=== PATIENT | male | born 1950 | race Asian ===

== ENCOUNTER 2022-12-24 08:19 | Inpatient (IN) | payer MEDICAID, MEDICARE ==
[~2022-12-24] VITALS: Ht 157.5 cm; Wt 54.4 kg
[2022-12-24 08:21] VITALS: BP 156/78
--- NOTE | 2022-12-24 08:21 | NUR ---
CHICHO FROM HOME FOR SOB/ASTHMA EXACERBATION. PMH: ASTHMA, HIGH CHOLESTEROL
--- NOTE | 2022-12-24 08:21 | NUR ---
CHICHO ALS TO ER BED 9
--- NOTE | 2022-12-24 08:47 | NUR ---
DR. ZUNIGA EVALUATING PATIENT AT BEDSIDE.
[2022-12-24] MEDS ORDERED: MAG SULF 2000 MG/WATER PREMIX 50 ML IV ONE (08:50)
[2022-12-24] MEDS ORDERED: methylPREDNISolone SS 125 MG/2 ML VIAL IVP ONE (08:50)
[2022-12-24] MEDS ORDERED: IPRATROPIUM 0.02% 0.5 MG/2.5 ML NEBU INH ONE (08:50)
[2022-12-24] MEDS ORDERED: ALBUTEROL 0.083% 2.5 MG/3 ML NEBU INH ONE (08:50)
[2022-12-24 09:11] LABS: BASOPHILS # (AUTO) 0.2 K/uL (0.00-0.22); BASOPHILS % (AUTO) 2.4 % (0.0-2.0); EOSINOPHILS # (AUTO) 1.1 K/uL (0-0.4); EOSINOPHILS % (AUTO) 15.1 % (0.0-4.0); HEMATOCRIT 48.4 % (36-52); HEMOGLOBIN 16.3 g/dL (12.0-18.0); LYMPHOCYTES # (AUTO) 2.5 K/uL (2.0-11.5); LYMPHOCYTES % (AUTO) 34.1 % (20.5-51.1); MEAN CORPUSCULAR HEMOGLOBIN 31 pg (27-31); MEAN CORPUSCULAR HGB CONC 34 g/dL (33-37); MEAN CORPUSCULAR VOLUME 93.3 fL (80-94); MONOCYTES # (AUTO) 0.4 K/uL (0.8-1.0); MONOCYTES % (AUTO) 5.5 % (1.7-9.3); NEUTROPHILS # (AUTO) 3.1 K/uL (1.8-7.7); NEUTROPHILS % (AUTO) 42.9 % (42.2-75.2); PLATELET COUNT (AUTO) 340 K/uL (140-450); RED BLOOD CELL COUNT(AUTO) 5.19 MIL/uL (4.20-6.10); RED CELL DISTRIBUTION WIDTH 12.9 % (11.6-13.7); WHITE BLOOD COUNT (AUTO) 7.2 K/uL (4.8-10.8)
[2022-12-24 09:28] LABS: ALBUMIN 3.9 g/dL (3.4-5.0); ANION GAP 12.1 (8-16); ASPARTATE AMINOTRANSFERASE 38 U/L (15-37); CARBON DIOXIDE 30.2 mmol/L (21-32); CHLORIDE 102 mmol/L (98-107); CREATININE 1.1 mg/dL (0.6-1.3); GLUCOSE 108 mg/dL (74-106); POTASSIUM 4.3 mmol/L (3.5-5.1); SODIUM SERUM 140 mmol/L (136-145); TOTAL BILIRUBIN 0.4 mg/dL (0.0-1.0); UREA NITROGEN, BLOOD 15 mg/dL (7-18)
[2022-12-24] MEDS ORDERED: ALBU1SPR IH (10:02)
[2022-12-24] MEDS ORDERED: ATOR40TA PO (10:02)
[2022-12-24] MEDS ORDERED: ONDANSETRON 4 MG/2 ML VIAL IVP PRN (11:20)
[2022-12-24] MEDS ORDERED: ACETAMINOPHEN 325 MG TAB PO PRN (11:20)
[2022-12-24] MEDS: NACL 0.9% 1,000 ML IV SCH (11:20)
[2022-12-24] MEDS ORDERED: POTASSIUM CHLORIDE 10 MEQ TABER PO PRN (11:20)
[2022-12-24] MEDS ORDERED: ALBUTEROL SULFATE/IPRATROPIU 3 ML SOL IH PRN (11:20)
[2022-12-24] MEDS ORDERED: HYDROcodone/APAP 7.5/325 MG 1 TAB PO PRN (11:20)
[2022-12-24] MEDS ORDERED: MAG SULF 2000 MG/WATER PREMIX 50 ML IV PRN (11:20)
[2022-12-24 12:25] LABS: BASOPHILS # (AUTO) 0.1 K/uL (0.00-0.22); BASOPHILS % (AUTO) 0.9 % (0.0-2.0); EOSINOPHILS # (AUTO) 0.1 K/uL (0-0.4); EOSINOPHILS % (AUTO) 1.5 % (0.0-4.0); HEMATOCRIT 47.8 % (36-52); HEMOGLOBIN 15.6 g/dL (12.0-18.0); LYMPHOCYTES # (AUTO) 0.6 K/uL (2.0-11.5); LYMPHOCYTES % (AUTO) 7.1 % (20.5-51.1); MEAN CORPUSCULAR HEMOGLOBIN 30 pg (27-31); MEAN CORPUSCULAR HGB CONC 33 g/dL (33-37); MEAN CORPUSCULAR VOLUME 92.5 fL (80-94); MONOCYTES # (AUTO) 0.1 K/uL (0.8-1.0); MONOCYTES % (AUTO) 1.1 % (1.7-9.3); NEUTROPHILS # (AUTO) 7.2 K/uL (1.8-7.7); NEUTROPHILS % (AUTO) 89.4 % (42.2-75.2); PLATELET COUNT (AUTO) 317 K/uL (140-450); RED BLOOD CELL COUNT(AUTO) 5.17 MIL/uL (4.20-6.10); RED CELL DISTRIBUTION WIDTH 12.6 % (11.6-13.7); WHITE BLOOD COUNT (AUTO) 8.1 K/uL (4.8-10.8)
[2022-12-24 12:45] LABS: CARBON DIOXIDE 29.4 mmol/L (21-32); CHLORIDE 103 mmol/L (98-107); GLUCOSE 122 mg/dL (74-106); POTASSIUM 4.4 mmol/L (3.5-5.1); SODIUM SERUM 140 mmol/L (136-145); UREA NITROGEN, BLOOD 15 mg/dL (7-18)
--- NOTE | 2022-12-24 12:54 | NUR ---
[facility] [employer] #[id number] (BARBAD[place]) WITH DR ZUNIGA
[2022-12-24 12:56] LABS: PROTHROMBIN TIME 9.2 secs (10.8-13.4)
[2022-12-24] MEDS: methylPREDNISolone SS 125 MG/2 ML VIAL IVP SCH ×2 (13:00→22:23)
[2022-12-24 13:11] LABS: CHOL/HDL RATIO 3.7 (1-4.5); FREE T4 (FREE THYROXINE) 1.02 ng/dL (0.76-1.46); MAGNESIUM 2.9 mg/dL (1.8-2.4); PHOSPHORUS 3.8 mg/dL (2.5-4.9); THYROID STIMULATING HORMONE 0.92 uIU/mL (0.34-3.74)
[2022-12-24] MEDS: ALBUTEROL SULFATE/IPRATROPIU 3 ML SOL IH SCH (19:04)
--- NOTE | 2022-12-24 20:00 | NUR ---
PT IS RESTING AND AT THE BEDSIDE.
--- NOTE | 2022-12-24 20:30 | NUR ---
FAMILY MEMBER DELIVERING FOOD AND PT GOTTEN THE FOOD
--- NOTE | 2022-12-24 22:00 | NUR ---
ADMITTED PATIENT TO [facility] VIA [place] AWAKE ALERT ORIENTED X4, YORUBA SPEAKING. ACCOMPANIED BY HER . CC: SOB DX: ACUTE ASTHMA EXACERBATION. PATIENT WALKED FROM [place] TO HIS BED. O2 AT 2L NC SATING 95%. SAFETY PRECAUTIONS ARE IN PLACE. MRSA SCREENING DONE. CALL LIGHT WITHIN REACH. IVF NS REGULATED AT 50 ML/HR.
--- NOTE | 2022-12-24 22:18 | NUR ---
Patient will be admitted to care of DONNY. Admited to TELEMTRY . Will go to room 111A. Belongings list completed. Report to GALILEO.
[2022-12-24] MEDS: DOCUSATE SODIUM 100 MG GELCAP PO SCH (22:20)
--- NOTE | 2022-12-24 22:20 | NUR ---
ADMINISTERED ALL SCHEDULED MEDICATIONS PER MD ORDER. TOLERATED WELL.
[2022-12-24] MEDS: ATORVASTATIN 20 MG TAB PO SCH (22:28)
[2022-12-25] VITALS: BP 134/76
[2022-12-25 04:00] VITALS: BP 135/69
[2022-12-25] MEDS ORDERED: methylPREDNISolone SS 125 MG/2 ML VIAL ONE (06:23)
[2022-12-25] MEDS: methylPREDNISolone SS 125 MG/2 ML VIAL IVP SCH (06:25)
[2022-12-25] MEDS: NACL 0.9% 1,000 ML IV SCH (07:20)
--- NOTE | 2022-12-25 07:22 | NUR ---
GAVE REPORT TO AM SHIFT NURSE FOR CONTINUITY OF CARE.
[2022-12-25 07:23] LABS: BASOPHILS % (AUTO) 0.1 % (0.0-2.0); HEMATOCRIT 48.9 % (36-52); HEMOGLOBIN 15.9 g/dL (12.0-18.0); LYMPHOCYTES % (AUTO) 9.3 % (20.5-51.1); MEAN CORPUSCULAR HEMOGLOBIN 30 pg (27-31); MEAN CORPUSCULAR HGB CONC 33 g/dL (33-37); MEAN CORPUSCULAR VOLUME 93.4 fL (80-94); MONOCYTES # (AUTO) 0.2 K/uL (0.8-1.0); MONOCYTES % (AUTO) 1.6 % (1.7-9.3); PLATELET COUNT (AUTO) 370 K/uL (140-450); RED BLOOD CELL COUNT(AUTO) 5.23 MIL/uL (4.20-6.10); RED CELL DISTRIBUTION WIDTH 12.9 % (11.6-13.7); WHITE BLOOD COUNT (AUTO) 11.2 K/uL (4.8-10.8)
[2022-12-25] MEDS: ALBUTEROL SULFATE/IPRATROPIU 3 ML SOL IH SCH ×3 (07:28→19:49)
--- NOTE | 2022-12-25 07:30 | NUR ---
ARRIVED IN PT ROOM. PT EXHIBITED INCREASED WOB AND SEEMED DISTRESSED. HE WAS SITTING UP IN BED, TACHYPNEIC, AND TACHYCARDIC. RAISED HEAD OF BED AND GAVE PT BREATHING TREATMENT. PATIENT DISPOSITION NOTABLY IMPROVED AND WAS ABLE TO SIT BACK AND WAS MORE RELAXED. HR AND RESPIRATORY BOTH DECREASED. WILL CONTINUE TO MONITOR PT.
[2022-12-25 07:36] LABS: ANION GAP 14.6 (8-16); CARBON DIOXIDE 28.6 mmol/L (21-32); CHLORIDE 103 mmol/L (98-107); CREATININE 1.2 mg/dL (0.6-1.3); GLUCOSE 129 mg/dL (74-106); POTASSIUM 4.2 mmol/L (3.5-5.1); SODIUM SERUM 142 mmol/L (136-145); UREA NITROGEN, BLOOD 23 mg/dL (7-18)
--- NOTE | 2022-12-25 07:37 | NUR ---
GOT REPORT FROM THE NIGHT NURSE,PT IS AWAKE PT GETTING BREATHING TX. [id number]
[2022-12-25 07:49] LABS: MAGNESIUM 2.3 mg/dL (1.8-2.4); PHOSPHORUS 4.5 mg/dL (2.5-4.9)
[2022-12-25 08:00] VITALS: BP 130/69
[2022-12-25] MEDS: DOCUSATE SODIUM 100 MG GELCAP PO SCH ×2 (08:42→21:48)
[2022-12-25] MEDS: PANTOPRAZOLE 40 MG INJ VIAL IVP SCH (08:42)
--- NOTE | 2022-12-25 09:30 | NUR ---
PATIENT HAS BEEN SCREENED AND CATEGORIZED MODERATE NUTRITION RISK. PATIENT WILL BE SEEN WITHIN 3-5 DAYS OF ADMISSION. REVIEWED BY MICHELE ROBERTSON RD
[2022-12-25 09:38] LABS: APPEARANCE,URINE CLEAR (CLEAR); BILIRUBIN,URINE NEGATIVE (NEGATIVE); BLOOD, URINE NEGATIVE (NEGATIVE); COLOR,URINE YELLOW (YELLOW); LEUKOCYTE ESTERASE ,URINE NEGATIVE (NEGATIVE); NITRITE, URINE NEGATIVE (NEGATIVE); UGLUCOSE NEGATIVE (NEGATIVE)
[2022-12-25 09:52] LABS: BARBITURATE, URINE NEGATIVE ng/ml (NEG <=200); BENZODIAZEPINE, URINE NEGATIVE ng/mL (NEG <=200); CANNABINOID, URINE NEGATIVE ng/mL (NEG <=50); COCAINE, URINE NEGATIVE ng/mL (NEG <=300); OPIATE, URINE NEGATIVE ng/mL (NEG <=2000); PHENCYCLIDINE SCREEN,URINE NEGATIVE ng/mL (NEG <=25)
[2022-12-25 13:00] VITALS: BP 136/82
[2022-12-25] MEDS: methylPREDNISolone SS 40 MG/ML VIAL IVP SCH ×2 (13:03→21:47)
[2022-12-25 16:00] VITALS: BP 136/86
--- NOTE | 2022-12-25 17:15 | NUR ---
P.T. NOTES P.T. EVAL COMPLETED; REFER TO EVAL FOR DETAILS.
--- NOTE | 2022-12-25 19:40 | NUR ---
GAVE REPORT TO THE NIGHT NURSE,[place]
--- NOTE | 2022-12-25 19:41 | NUR ---
RECEIVED PATIENT AWAKE WITH O2 AT 2L NC. NO SOB NOTED. RESPIRATION EVEN UNLABORED. IVF NS INFUSING 50ML/HR TO THE RFA. NO COMPLAINTS OF PAIN. CALL LIGHT WITHIN REACH. AMBULATORY.
[2022-12-25 20:00] VITALS: BP 104/64
--- NOTE | 2022-12-25 21:47 | NUR ---
ALL 2100 SCHEDULED MEDICATIONS ADMINISTERED.
[2022-12-25] MEDS: ATORVASTATIN 20 MG TAB PO SCH (21:48)
[2022-12-26] VITALS: BP 119/71
[2022-12-26 04:00] VITALS: BP 135/82
[2022-12-26] MEDS: NACL 0.9% 1,000 ML IV SCH (04:15)
[2022-12-26] MEDS: methylPREDNISolone SS 40 MG/ML VIAL IVP SCH (04:55)
[2022-12-26 06:59] LABS: BASOPHILS % (AUTO) 0.2 % (0.0-2.0); HEMOGLOBIN 15.1 g/dL (12.0-18.0); LYMPHOCYTES % (AUTO) 6.6 % (20.5-51.1); MEAN CORPUSCULAR HEMOGLOBIN 30 pg (27-31); MEAN CORPUSCULAR HGB CONC 32 g/dL (33-37); MEAN CORPUSCULAR VOLUME 93.9 fL (80-94); MONOCYTES # (AUTO) 0.6 K/uL (0.8-1.0); MONOCYTES % (AUTO) 3.9 % (1.7-9.3); NEUTROPHILS # (AUTO) 13.2 K/uL (1.8-7.7); NEUTROPHILS % (AUTO) 89.3 % (42.2-75.2); PLATELET COUNT (AUTO) 360 K/uL (140-450); RED BLOOD CELL COUNT(AUTO) 5.01 MIL/uL (4.20-6.10); WHITE BLOOD COUNT (AUTO) 14.8 K/uL (4.8-10.8)
[2022-12-26 07:09] LABS: ANION GAP 12.3 (8-16); CARBON DIOXIDE 32.2 mmol/L (21-32); CHLORIDE 105 mmol/L (98-107); GLUCOSE 127 mg/dL (74-106); POTASSIUM 5.5 mmol/L (3.5-5.1); SODIUM SERUM 144 mmol/L (136-145); UREA NITROGEN, BLOOD 30 mg/dL (7-18)
[2022-12-26] MEDS: ALBUTEROL SULFATE/IPRATROPIU 3 ML SOL IH SCH (07:10)
--- NOTE | 2022-12-26 07:14 | NUR ---
ALL NEEDS ATTENDED AND MET THROUGHOUT THE SHIFT. ENDORSED PATIENT TO AM NURSE SHIFT FOR CONTINUITY OF CARE.
--- NOTE | 2022-12-26 07:21 | NUR ---
GOT REPORT FROM THE NIGHT NURSE, PT GETTING BREATHING TREATMENT.[id number]
[2022-12-26 07:28] LABS: MAGNESIUM 2.4 mg/dL (1.8-2.4); PHOSPHORUS 4.7 mg/dL (2.5-4.9)
[2022-12-26 08:00] VITALS: BP 126/72
[2022-12-26] MEDS: PANTOPRAZOLE 40 MG INJ VIAL IVP SCH (08:31)
[2022-12-26] MEDS: DOCUSATE SODIUM 100 MG GELCAP PO SCH (08:32)
[2022-12-26] MEDS ORDERED: ALBU0.0912 IH (09:02)
[2022-12-26] MEDS ORDERED: PRED5TAB7 PO (09:02)
--- NOTE | 2022-12-26 10:50 | NUR ---
PT DISCHARGED HOME, DISCHARGE INSTRUCTION GIVEN ID AND IV ALSO TELE REMOVED .PT ESCORTED TO THE CAR WITHOUT SOB.[id number]
== END 2022-12-26 10:40 | disposition home or self-care (01) | DRG 140 ==
LOC: MED 08:19 → MTU 10:58
DX: J44.1 Chronic obstructive pulmonary disease with (acute) exacerbation (principal); J96.01 Acute respiratory failure with hypoxia; J45.901 Unspecified asthma with (acute) exacerbation; R65.10 Systemic inflammatory response syndrome (SIRS) of non-infectious origin without acute organ dysfunction; R73.9 Hyperglycemia, unspecified; E78.00 Pure hypercholesterolemia, unspecified; F17.200 Nicotine dependence, unspecified, uncomplicated; Z20.822 Contact with and (suspected) exposure to COVID-19; Z79.899 Other long term (current) drug therapy
CPT/HCPCS: 36415; 71045; 80048; 80053; 80305; 81003; 82140; 82150; 83036; 83605; 83690; 83735; 83880; 84100; 84439; 84443; 84484; 85025; 85610; 85730; 87040; 87081; 87086; 93005; 94640; 96365; 96366; 96375; 97116; 97163-GP; 99285; C9113; J1644; J2920; J2930; J3475; J7613; J7644